=== PATIENT | female | born 1985 | race Caucasian/White ===

== ENCOUNTER → 2017-02-22 | Outpatient (CLI) | payer OTHER ==
[~2017-02-22] MED LIST: ATIVAN1 MG PO; CIPROFLOXACIN500 MG PO; LOPRESSOR25 MG PO; MACROBID100 M1 PO; ZOFRAN ODT4 MG SL
[2017-02-22 13:23] LABS: BUN 11 mg/dl (7-24); CARBON DIOXIDE 28 mmol/L (21-32); CHLORIDE 105 mmol/L (98-107); EST GLOM FILT AFRICAN AMERICAN > 60 ml/min; GLUCOSE 81 mg/dL (65-99); POTASSIUM 3.8 mmol/L (3.5-5.1); SODIUM 140 mmol/L (136-145)
== END | disposition home or self-care (01) ==
LOC: LAB 12:41
PROVIDERS: Family Medicine
DX: R25.2 Cramp and spasm (principal)

== ENCOUNTER → 2018-06-11 | Outpatient (CLI) | payer OTHER | END | disposition home or self-care (01) | LOC: CARD 15:00 | DX: I08.1 Rheumatic disorders of both mitral and tricuspid valves (principal) ==

== ENCOUNTER → 2020-05-01 | Outpatient (CLI) | payer OTHER | END | disposition home or self-care (01) | LOC: RAD 13:03 | PROVIDERS: ATTEND Family Medicine | DX: M25.462 Effusion, left knee (principal); M25.862 Other specified joint disorders, left knee ==

== ENCOUNTER → 2020-06-15 | Outpatient (CLI) | payer OTHER | END | disposition home or self-care (01) | LOC: US 12:00 | PROVIDERS: ATTEND Family Medicine | DX: M79.662 Pain in left lower leg (principal) ==

== ENCOUNTER → 2021-01-24 | Outpatient (CLI) | payer OTHER | END | disposition home or self-care (01) | LOC: MRI 14:00 | PROVIDERS: ATTEND Family Medicine | DX: M17.12 Unilateral primary osteoarthritis, left knee (principal); M25.462 Effusion, left knee; R60.0 Localized edema ==